=== PATIENT | male | born 1985 | race Two or more races ===

== ENCOUNTER 2023-02-17 08:05 | Emergency (ER) | payer MEDICAID ==
[~2023-02-17] VITALS: Ht 165.1 cm; Wt 82.8 kg
[2023-02-17 09:48] VITALS: BP 138/97; PULSE 72; RESP 16; TEMP 98; O2SAT 99
[2023-02-17] MEDS ORDERED: KETOROLAC TROMETH 30 MG/ML 1ML VIAL IM ONE (11:45)
[2023-02-17] MEDS ORDERED: CYCL-839 PO (11:49)
[2023-02-17] MEDS ORDERED: IBUP1TAB5 PO (11:49)
[2023-02-17] MEDS ORDERED: KETOROLAC TROMETH 60MG/2ML VIAL IM ONE (12:00)
== END 2023-02-17 12:09 | disposition home or self-care (01) ==
LOC: ER 08:05
DX: S46.911A Strain of unspecified muscle, fascia and tendon at shoulder and upper arm level, right arm, initial encounter (principal); S16.1XXA Strain of muscle, fascia and tendon at neck level, initial encounter; V43.52XA Car driver injured in collision with other type car in traffic accident, initial encounter; Y93.89 Activity, other specified; Y92.488 Other paved roadways as the place of occurrence of the external cause; Y99.8 Other external cause status
CPT/HCPCS: 72040; 72070; 72100; 73030; 96372; 99284; J1885